=== PATIENT | female | born 1975 | race African-American/Black ===

== ENCOUNTER 2023-03-15 14:00 | Inpatient (IN) | payer OTHER, SELFPAY ==
[2023-03-15] MEDS ORDERED: Ondansetron ODT 4 MG TAB PO PRN (15:52)
[2023-03-15] MEDS ORDERED: Ondansetron PF 4 MG/2 ML Vial IVP PRN (15:52)
[2023-03-15] MEDS ORDERED: Nitroglycerin 0.4 MG TAB (25 Tab Bottle) SL PRN (15:58)
[2023-03-15 16:29] VITALS: BMI 52.4
[2023-03-15 17:38] LABS: Troponin I 1.672 ng/mL (< 0.028)
[2023-03-15] MEDS ORDERED: Dextrose 50% Abboject 50 ML SYRINGE SLOW IVP PRN (18:12)
[2023-03-15] MEDS ORDERED: HumaLOG 300 UNITS/3 ML VIAL SC PRN (18:12)
[2023-03-15] MEDS ORDERED: Glucagon 1 MG/ML KIT IM PRN (18:12)
[2023-03-15] MEDS ORDERED: Dextrose 5% in Water 1,000 ML IV PRN (18:12)
[2023-03-15] MEDS: Acetaminophen 325 MG TAB PO PRN (19:51)
[2023-03-15] MEDS ORDERED: traMADol HCl 50 MG TAB PO SCH (20:45)
[2023-03-15] MEDS: Nitroglycerin 2% Ointment 1 INCH/1 GM Packet TOP SCH (21:10)
[2023-03-15 21:38] LABS: Troponin I 1.987 ng/mL (< 0.028)
[2023-03-16 04:43] LABS: Cardiac Risk 3.1 (Less than 4.5)
[2023-03-16] MEDS: Acetaminophen 325 MG TAB PO PRN ×5 (05:19→22:11)
[2023-03-16] MEDS: Nitroglycerin 2% Ointment 1 INCH/1 GM Packet TOP SCH ×3 (05:19→22:11)
[2023-03-16] MEDS: Aspirin Chewable 81 MG TAB PO SCH (08:23)
[2023-03-16] MEDS ORDERED: Carvedilol 3.125 MG TAB PO SCH (11:15)
[2023-03-16 12:03] LABS: Troponin I 0.658 ng/mL (< 0.028)
[2023-03-16] MEDS: AMOXicillin 250 MG CAP PO SCH ×2 (14:36→20:13)
[2023-03-16] MEDS ORDERED: Communication Order-Pharmacy FS SCH (18:00)
[2023-03-16] MEDS: Carvedilol 3.125 MG TAB PO SCH (18:02)
[2023-03-17] MEDS: Nitroglycerin 2% Ointment 1 INCH/1 GM Packet TOP SCH ×3 (05:36→20:52)
[2023-03-17] MEDS: Carvedilol 3.125 MG TAB PO SCH ×2 (05:36→15:49)
[2023-03-17] MEDS: AMOXicillin 250 MG CAP PO SCH ×3 (05:36→20:38)
[2023-03-17] MEDS: Aspirin Chewable 81 MG TAB PO SCH (05:36)
[2023-03-17 08:07] LABS: #Eosinphils 0.1 thou/uL (0.0-0.7); #Monocytes 0.7 thou/uL (0.11-0.59); #Neutrophils 7.4 thou/uL (1.40-6.50); %Basophils 0.3 % (0.0-1.0); %Eosinophils 0.6 % (0.0-10.0); %Lymphocytes 18.4 % (21.0-51.0); %Monocytes 7.1 % (0.0-10.0); %Neutrophils 72.8 % (42.0-75.0); Hematocrit 38.5 % (36.0-47.0); Hemoglobin 11.9 g/dL (12.0-16.0); Mean Corpuscular HGB CONC 30.9 g/dL (32.0-36.0); Mean Corpuscular Hemoglobin 24.8 pg (27.0-31.0); Mean Corpuscular Volume 80.2 fl (78.0-98.0); Mean Platelet Volume 10.9 fL (7.4-10.4); Platelet Count 412 10x3/uL (130-400); RBC Distribution Width 14.3 % (11.5-14.5); White Blood Cell (WBC) Count 10.2 10x3/uL (4.8-10.8)
[2023-03-17 08:19] LABS: Anion Gap 14 mmol/L (10-20); BUN (Urea Nitrogen) 12 mg/dL (7.0-18.7); Calc. Creatinine Clearance 155 mL/min (70-130); Calcium 8.9 mg/dL (7.8-10.44); Carbon Dioxide 22 mmol/L (22-29); Chloride 99 mmol/L (98-107); Estimated GFR 70; Glucose 139 mg/dL (70-105); Magnesium 1.9 mg/dL (1.6-2.6); Sodium 131 mmol/L (136-145)
[2023-03-17] MEDS ORDERED: fentaNYL 50 mcg/mL 1 mL Vial ONE (11:24)
[2023-03-17] MEDS ORDERED: Midazolam HCl 2 mg/2 ml Vial ONE (11:24)
[2023-03-17] MEDS ORDERED: Iopamidol-370 76% 500 ML MDV (1 ML CHARGE) ONE (11:24)
[2023-03-17] MEDS ORDERED: Lidocaine 1% (PF) 30 ML VIAL ONE ×2 (11:25→11:28)
[2023-03-17] MEDS ORDERED: Nitroglycerin 50 MG/250 ML BOT 250 ML ONE (11:25)
[2023-03-17] MEDS ORDERED: Heparin 10,000 UNITS/ 10 ML VIAL ONE (11:25)
[2023-03-17] MEDS ORDERED: Verapamil 5 MG/2 ML VIAL ONE (11:25)
[2023-03-17] MEDS: Acetaminophen 325 MG TAB PO PRN (15:00)
[2023-03-17] MEDS ORDERED: Acetaminophen 500 MG TAB PO SCH (21:00)
[2023-03-17] MEDS ORDERED: Ketorolac Tromethamine 30 MG/ML VIAL IVP SCH (22:00)
[2023-03-18 05:16] LABS: Anion Gap 14 mmol/L (10-20); BUN (Urea Nitrogen) 13 mg/dL (7.0-18.7); Calc. Creatinine Clearance 131 mL/min (70-130); Calcium 8.8 mg/dL (7.8-10.44); Carbon Dioxide 21 mmol/L (22-29); Chloride 102 mmol/L (98-107); Estimated GFR 57; Glucose 138 mg/dL (70-105); Sodium 133 mmol/L (136-145)
[2023-03-18] MEDS: Nitroglycerin 2% Ointment 1 INCH/1 GM Packet TOP SCH (05:42)
[2023-03-18] MEDS ORDERED: Nitroglycerin 0.4 MG TAB (25 Tab Bottle) SL PRN (05:58)
[2023-03-18] MEDS ORDERED: Sodium Chloride 0.9% 200 ML IV PRN (05:58)
[2023-03-18] MEDS ORDERED: Acetaminophen/Codeine 30-300mg Tablet PO PRN ×2 (05:58)
[2023-03-18 07:46] VITALS: BP 132/77; TEMP 97.9
[2023-03-18] MEDS: Carvedilol 3.125 MG TAB PO SCH (08:43)
[2023-03-18] MEDS: AMOXicillin 250 MG CAP PO SCH (08:43)
[2023-03-18] MEDS: Aspirin Chewable 81 MG TAB PO SCH (08:43)
[2023-03-18] MEDS ORDERED: Carvedilol 3.125 MG TAB PO SCH (17:00)
== END 2023-03-18 11:00 | disposition home or self-care (01) | DRG 281 ==
LOC: 2NO 14:38 → INTOOBSV 14:38 → OBSVTOIN 03-16 14:47
PROVIDERS: ADMIT Internal Medicine; ATTEND Internal Medicine
PROC: 4A023N7 Measurement of Cardiac Sampling and Pressure, Left Heart, Percutaneous Approach (ICD-10-PCS; principal; 2023-03-17)
PROC: B2151ZZ Fluoroscopy of Left Heart using Low Osmolar Contrast (ICD-10-PCS; 2023-03-17)
PROC: B2111ZZ Fluoroscopy of Multiple Coronary Arteries using Low Osmolar Contrast (ICD-10-PCS; 2023-03-17)
DX: I21.4 Non-ST elevation (NSTEMI) myocardial infarction (principal); I47.20 Ventricular tachycardia, unspecified; Z68.43 Body mass index [BMI] 50.0-59.9, adult; Q21.12 Patent foramen ovale; I10 Essential (primary) hypertension; R04.0 Epistaxis; E11.69 Type 2 diabetes mellitus with other specified complication; J32.9 Chronic sinusitis, unspecified; E66.01 Morbid (severe) obesity due to excess calories; Z83.3 Family history of diabetes mellitus; Z83.6 Family history of other diseases of the respiratory system; Z79.84 Long term (current) use of oral hypoglycemic drugs; Z79.899 Other long term (current) drug therapy; Z90.49 Acquired absence of other specified parts of digestive tract; Z98.51 Tubal ligation status; Z90.710 Acquired absence of both cervix and uterus; Z98.890 Other specified postprocedural states; Z79.82 Long term (current) use of aspirin; Z20.822 Contact with and (suspected) exposure to COVID-19; R07.89 Other chest pain
CPT/HCPCS: 36415; 36416; 71275; 74174; 80048; 80061; 83036; 83735; 84484; 85025; 85379; 93005; 93010; 93306; 93458; 94760; C1725; C1769; C1894; J1644; J1650; J1885; J2001; J2250; J3010; Q9967